=== PATIENT | female | born 1980 | race Two or more races ===

== ENCOUNTER 2021-05-13 12:45 | Outpatient (CLI) | payer OTHER | END 2021-05-13 12:50 | disposition home or self-care (01) | LOC: ASH CLINIC 12:45 | PROVIDERS: ATTEND Internal Medicine Critical Care Medicine | DX: U07.1 COVID-19 (principal); Z23 Encounter for immunization ==

== ENCOUNTER 2023-04-22 12:12 | Outpatient (CLI) | payer OTHER | END 2023-04-22 12:24 | disposition home or self-care (01) | LOC: RAD 12:12 | PROVIDERS: ATTEND Orthopaedic Surgery Orthopaedic Surgery of the Spine | DX: M54.51 Vertebrogenic low back pain (principal); M25.511 Pain in right shoulder; M25.552 Pain in left hip ==

== ENCOUNTER 2024-03-19 13:21 | Outpatient (CLI) | payer OTHER | END 2024-03-19 13:22 | disposition home or self-care (01) | LOC: EDBD 13:21 → NUCLEAR 13:21 | PROVIDERS: ATTEND Orthopaedic Surgery Orthopaedic Surgery of the Spine | DX: M81.0 Age-related osteoporosis without current pathological fracture (principal) ==

== ENCOUNTER 2024-03-26 10:30 | Outpatient (CLI) | payer OTHER | END 2024-03-26 10:33 | disposition home or self-care (01) | LOC: MAMO-SONO 10:30 | PROVIDERS: ATTEND Internal Medicine | DX: R25.1 Tremor, unspecified (principal); R51.9 Headache, unspecified; G40.89 Other seizures; N60.11 Diffuse cystic mastopathy of right breast; N60.12 Diffuse cystic mastopathy of left breast; D25.9 Leiomyoma of uterus, unspecified; K76.0 Fatty (change of) liver, not elsewhere classified; N18.30 Chronic kidney disease, stage 3 unspecified | CPT/HCPCS: 70551 ==

== ENCOUNTER → 2024-10-28 | Emergency (ER) | payer OTHER ==
[~2024-10-28] VITALS: Ht 162.6 cm; Wt 58.5 kg
[~2024-10-28] MED LIST: CLARITIN10 M1; ROGAINE60 GM
== END | disposition home or self-care (01) ==
LOC: ER 18:22
DX: S62.632A Displaced fracture of distal phalanx of right middle finger, initial encounter for closed fracture (principal); Z88.0 Allergy status to penicillin; W22.8XXA Striking against or struck by other objects, initial encounter; Y93.89 Activity, other specified; Y92.89 Other specified places as the place of occurrence of the external cause

== ENCOUNTER 2024-11-02 10:59 | Outpatient (CLI) | payer OTHER | END 2024-11-02 11:06 | disposition home or self-care (01) | LOC: RAD 10:59 | PROVIDERS: ATTEND Plastic Surgery | DX: S62.52 Fracture of distal phalanx of thumb (principal) ==